=== PATIENT | female | born 1960 | race Hispanic/Latino ===

== ENCOUNTER 2019-03-27 15:02 | Emergency (ER) | payer OTHER ==
--- OUTSIDE RECORDS SUMMARY | 2019-03-27 15:04 | XMS REPORT ---
:1960 [facility] [address] [place] [address] [address] [place] [address] Care Team Providers Name Role Phone Unavailable Unavailable Unavailable Problems This patient has no known problems. Allergies, Adverse Reactions, Alerts This patient has no known allergies or adverse reactions. Medications This patient has no known medications.
[2019-03-27] MEDS ORDERED: HYDROCODONE/APAP 10/325 TAB ONE (17:40)
[2019-03-27 17:43] LABS: Urine Blood TRACE (NEG); Urine Glucose NEGATIVE (NEG); Urine Protein NEGATIVE (NEG); Urine Specific Gravity 1.025 (1.005-1.030)
--- NOTE | 2019-03-27 18:17 | RAD REPORT ---
EXAM DESCRIPTION: CT - Stone Protocol - 03/27/2019 6:01 pm CLINICAL HISTORY: Left flank pain, left lower abdominal pain, prior hysterectomy COMPARISON: May 2013 TECHNIQUE: Axial 5 mm thick images were obtained without oral or IV contrast. The [id number] span s the entirety of the system including uppermost abdomen and lung bases. All CT scans are performed using dose optimization technique as appropriate and may include automated exposure control or mA/KV adjustment according to patient size. FINDINGS: No hydronephrosis is present and no obstructing ureteral calculi. No suspicious renal mass es. Isodense masses and pyelonephritis are not excluded on a stone protocol CT scan. No urinary bladd er suspicious finding. No significant adrenal finding. Uterus is absent. Small left ovary is seen wit h no suspicious finding. Right ovary is not identified and may be surgically absent or atrophic. Liver shows fatty infiltration pattern. No focal liver lesion. Spleen and pancreas show no acute find ings. No gallbladder or biliary tree abnormality identified. Stomach and small bowel show no suspicious finding. Moderate stool volume in the right-side of the co juan. The appendix is normal. Sigmoid diverticulosis present without diverticulitis. No hernia, mass or bulky lymphadenopathy noted. No free air, free fluid or inflammatory stranding. No significant bony abnormality. IMPRESSION: No hydronephrosis, obstructing calculi or other acute finding. Isodense masses and pyelonephritis are not excluded on stone protocol technique. No acute GI finding. Patient has moderate sigmoid diverticulosis without diverticulitis. Active GI pr ocess is not seen.
[2019-03-27] MEDS ORDERED: DIAZEPAM 5 MG TABLET ONE (18:27)
[2019-03-27 19:36] LABS: Urine Bacteria <20 /HPF (<20); Urine Culture Reflex Order NOT NEEDED; Urine Mucus 1+ /HPF (NONE SEEN)
--- NOTE | 2019-03-27 19:39 | EDPHYS ---
Physician Documentation [facility] Name: Ashlee Robbins Age: 58 yrs Sex: Female : 1960 Arrival Date: 03/27/2019 Time: 15:05 Bed 20 Private MD: ED Physician Alex Oliveira HPI: 03/27 17:42 This 58 yrs old Female presents to ER via Ambulatory with complaints of Back jmm Pain, Pelvic Pain. 17:42 The patient presents with pain that is acute. Onset: The symptoms/episode jmm began/occurred gradually, 2 day(s) ago. The pain radiates to the pelvis. Associated signs and symptoms: Pertinent negatives: dysuria, fever, vomiting. This is a 58 year old female with no chronic medical conditions that presents to the ED with complaints of left lower back pain which radiates to her pelvis. Denies vomiting or diarrhea. Patient states the pain started after heavy lifting. . Historical: - Allergies: 15:23 Aspirin; aa5 - PMHx: 15:23 COLON PROBLEMS; aa5 - PSHx: 15:23 Hysterectomy; aa5 - Immunization history:: Flu vaccine is not up to date. - Social history:: Smoking status: Patient/guardian denies using tobacco. - Ebola Screening: : No symptoms or risks identified at this time. ROS: 17:42 Constitutional: Negative for fever, chills, and weight loss, Cardiovascular: Negative jmm for chest pain, palpitations, and edema, Respiratory: Negative for shortness of breath, cough, wheezing, and pleuritic chest pain. 17:42 Back: Positive for flank pain. 17:42 : Positive for pelvic pain. 17:42 All other systems are negative. Exam: 17:42 Constitutional: This is a well developed, well nourished patient who is awake, alert, jmm and in no acute distress. Head/Face: atraumatic. Eyes: EOMI, no conjunctival erythema appreciated ENT: Moist Mucus Membranes Neck: Trachea midline, Supple Chest/axilla: Normal chest wall appearance and motion. Cardiovascular: Regular rate and rhythm. No edema appreciated Respiratory: Normal respirations, no respiratory distress appreciated Abdomen/GI: Non distended, soft 17:42 Back: CVA tenderness, is absent, vertebral tenderness, is not appreciated, left buttock pain on palpation. 17:42 Musculoskeletal/extremity: ROM: intact in all extremities. 17:42 Skin: Appearance: Color: normal in color. 17:42 Neuro: Orientation: is normal, Mentation: is normal, Memory: is normal. 17:42 Psych: Behavior/mood is pleasant, cooperative. Vital Signs: 15:23 BP 146 / 83; Pulse 79; Resp 16 S; Temp 98.6(TE); Pulse Ox 96% on R/A; Weight 82.55 kg aa5 (R); Height 5 ft. 0 in. (152.40 cm) (R); Pain 10/10; 17:40 BP 178 / 98; Pulse 83; Resp 20; Pulse Ox 97% on R/A; Pain 10/10; em 19:20 BP 136 / 75; Pulse 66; Resp 16; Temp 98.3; Pulse Ox 99% ; Pain 5/10; rr5 19:50 BP 126 / 84; Pulse 62; Resp 17; Temp 98.2; Pulse Ox 99% ; Pain 3/10; rr5 15:23 Body Mass Index 35.54 (82.55 kg, 152.40 cm) aa5 MDM: 17:25 Patient medically screened. [facility] 19:29 Data reviewed: vital signs, nurses notes. Counseling: I had a detailed discussion with joleen the patient and/or guardian regarding: the historical points, exam findings, and any diagnostic results supporting the discharge/admit diagnosis, lab results, radiology results, the need for outpatient follow up, to return to the emergency department if symptoms worsen or persist or if there are any questions or concerns that arise at home. ED course: Patient is alert and non toxic in appearance. Most likely due to MS pain. Pain is relieved in the ED. Patient was otherwise given strict return precautions. Patient understood and agrees with the plan of care. . 03/27 17:30 Order name: Urine Dipstick--Ancillary (enter results) eb 03/27 17:44 Order name: Urine Dipstick-Ancillary; Complete Time: 18:20 EDMS 03/27 17:42 Order name: CT Stone Protocol [facility] 03/27 18:19 Order name: CT; Complete Time: 18:20 EDMS 03/27 18:27 Order name: Urine Microscopic Only em 03/27 19:36 Order name: Urine Microscopic Only; Complete Time: 19:40 EDMS Administered Medications: 17:43 Drug: [place] 10 mg-325 mg 1 tabs Route: PO; em 18:25 Follow up: Response: No adverse reaction; Pain is unchanged, physician notified em 18:27 Drug: Valium 5 mg Route: PO; em 19:53 Follow up: Response: No adverse reaction; Pain is decreased rr5 Disposition: 03/27/19 19:38 Discharged to Home. Impression: Muscle spasm, Urinary tract infection, site not specified. - Condition is Stable. - Discharge Instructions: Urinary Tract Infection, Adult. - Prescriptions for Cephalexin 500 mg Oral Capsule - take 1 capsule by ORAL route every 12 hours for 10 days; 20 capsule. Zanaflex 4 mg Oral Tablet - take 1 tablet by ORAL route every 8 hours As needed; 20 tablet. - Medication Reconciliation Form, Thank You Letter, Antibiotic Education, Prescription Opioid Use, Work release form form. - Follow up: Private Physician; When: 2 - 3 days; Reason: Recheck today's complaints, Continuance of care, Re-evaluation by your physician. Addendum: 03/30/2019 10:25 Co-signature as Attending Physician, Alex Oliveira MD I agree with the assessment and k dr plan of care. Signatures: Dispatcher [employer] EDIA Alex Oliveira MD MD kdr Mickail, Joel, PA PA [facility] Tony Santillan, HUMAN RELATIONS PROFESSOR HUMAN RELATIONS PROFESSOR Nell Beckham, RN RN aa5 Xander Guerrero RN RN rr5 Corrections: (The following items were deleted from the chart) 03/27 20:00 19:38 03/27/2019 19:38 Discharged to Home. Impression: Muscle spasm; Urinary tract rr5 infection, site not specified. Condition is Stable. Forms are Medication Reconciliation Form, Thank You Letter, Antibiotic Education, Prescription Opioid Use. Follow up: Private Physician; When: 2 - 3 days; Reason: Recheck today's complaints, Continuance of care, Re-evaluation by your physician. delroy
--- NOTE | 2019-03-27 19:39 | ER ---
Nurse's Notes [facility] Name: Ashlee Robbins Age: 58 yrs Sex: Female : 1960 Arrival Date: 03/27/2019 Time: 15:05 Bed 20 Private MD: Diagnosis: Muscle spasm;Urinary tract infection, site not specified Presentation: 03/27 15:21 Presenting complaint: Patient states: lower abd pain and low back pain that began aa5 . Pt reports nausea, denies vomiting. Reports diarrhea that has resolved. Transition of care: patient was not received from another setting of care. Onset of symptoms was February 2019. Risk Assessment: Do you want to hurt yourself or someone else? Patient reports no desire to harm self or others. Initial Sepsis Screen: Does the patient meet any 2 criteria? No. Patient's initial sepsis screen is negative. Does the patient have a suspected source of infection? No. Patient's initial sepsis screen is negative. Care prior to arrival: None. 15:21 Acuity: PATRICA 3 aa5 15:21 Method Of Arrival: Ambulatory aa5 Historical: - Allergies: 15:23 Aspirin; aa5 - PMHx: 15:23 COLON PROBLEMS; aa5 - PSHx: 15:23 Hysterectomy; aa5 - Immunization history:: Flu vaccine is not up to date. - Social history:: Smoking status: Patient/guardian denies using tobacco. - Ebola Screening: : No symptoms or risks identified at this time. Screenin:40 Abuse screen: Denies threats or abuse. Nutritional screening: No deficits noted. em Tuberculosis screening: No symptoms or risk factors identified. Fall Risk None identified. Assessment: 17:40 General: Appears in no apparent distress. uncomfortable, Behavior is calm, cooperative, em Denies fever. Pain: Complains of pain in left gluteus delmar Pain currently is 10 out of 10 on a pain scale. Pain began 2-3 days ago. Neuro: Level of Consciousness is awake, alert, obeys commands. Cardiovascular: Capillary refill < 3 seconds Patient's skin is warm and dry. Respiratory: Airway is patent Respiratory effort is even, unlabored, Respiratory pattern is regular, symmetrical. GI: Patient currently denies nausea, vomiting. : Denies burning with urination. Derm: Skin is intact, is healthy with good turgor, Skin is pink, warm \T\ dry. Musculoskeletal: Capillary refill < 3 seconds, Range of motion: intact in all extremities. 17:50 Reassessment: I agree with previous assessment. hb 18:20 Reassessment: Patient appears in no apparent distress at this time. Patient and/or em family updated on plan of care and expected duration. Pain level reassessed. Patient is alert, oriented x 3, equal unlabored respirations, skin warm/dry/pink. Patient states symptoms have not improved. 19:19 General: Appears in no apparent distress. comfortable, Behavior is calm, cooperative, rr5 appropriate for age. Pain: Complains of pain in left lower quadrant Pain radiates to groin Pain currently is 5 out of 10 on a pain scale. Quality of pain is described as aching, Pain began gradually, Is intermittent. Neuro: Level of Consciousness is awake, alert, obeys commands, Oriented to person, place, time, situation. Cardiovascular: Capillary refill < 3 seconds Patient's skin is warm and dry. Respiratory: Airway is patent Respiratory effort is even, unlabored, Respiratory pattern is regular, symmetrical. GI: Abdomen is round Reports lower abdominal pain, nausea, Patient currently denies vomiting. EENT: No signs and/or symptoms were reported regarding the EENT system. Derm: Skin is intact, Skin temperature is warm. Musculoskeletal: Circulation, motion, and sensation intact. Capillary refill < 3 seconds. 19:51 Reassessment: Patient appears in no apparent distress at this time. Patient is alert, rr5 oriented x 3, equal unlabored respirations, skin warm/dry/pink. discharge instruction given and explained without complaints made, verbalized understanding. Patient states feeling better. Patient states symptoms have improved. Vital Signs: 15:23 BP 146 / 83; Pulse 79; Resp 16 S; Temp 98.6(TE); Pulse Ox 96% on R/A; Weight 82.55 kg aa5 (R); Height 5 ft. 0 in. (152.40 cm) (R); Pain 10/10; 17:40 BP 178 / 98; Pulse 83; Resp 20; Pulse Ox 97% on R/A; Pain 10/10; em 19:20 BP 136 / 75; Pulse 66; Resp 16; Temp 98.3; Pulse Ox 99% ; Pain 5/10; rr5 19:50 BP 126 / 84; Pulse 62; Resp 17; Temp 98.2; Pulse Ox 99% ; Pain 3/10; rr5 15:23 Body Mass Index 35.54 (82.55 kg, 152.40 cm) aa5 ED Course: 15:05 Patient arrived in ED. cl3 15:21 Arm band placed on. aa5 15:22 Triage completed. aa5 17:09 Robert Martinez [facility] 17:09 Alex Oliveira MD is Attending Physician. [facility] 17:23 Urine collected: clean catch specimen, clear, adrianne colored. jb1 17:33 Tony Santillan LVN is Primary Nurse. em 17:40 Patient has correct armband on for positive identification. Placed in gown. Bed in low em position. Call light in reach. Side rails up X2. Pulse ox on. NIBP on. 20:00 No provider procedures requiring assistance completed. Patient did not have IV access rr5 during this emergency room visit. Administered Medications: 17:43 Drug: [place] 10 mg-325 mg 1 tabs Route: PO; em 18:25 Follow up: Response: No adverse reaction; Pain is unchanged, physician notified em 18:27 Drug: Valium 5 mg Route: PO; em 19:53 Follow up: Response: No adverse reaction; Pain is decreased rr5 Outcome: 19:38 Discharge ordered by . [facility] 19:58 Discharged to home ambulatory, with family. rr5 19:58 Condition: stable 19:58 Discharge instructions given to patient, Instructed on discharge instructions, follow up and referral plans. medication usage, Demonstrated understanding of instructions, follow-up care, medications, Prescriptions given X 2. 20:00 Patient left the ED. rr5 Signatures: José Zamarripa jb1 Robert Martinez PA PA [facility] Tony Santillan LVN [employer] em Nell Ocasio RN RN aa5 Justine Galvez, BASILIO RICHMOND Xander Guerrero RN RN rr5 Zuhair Goodson cl3
[2019-03-28 01:41] VITALS: O2SAT 99
[2019-03-28 03:50] VITALS: BP 126/84; TEMP 98.2
== END 2019-03-27 20:00 | disposition home or self-care (01) ==
LOC: ER 15:02
DX: N39.0 Urinary tract infection, site not specified (principal); M62.838 Other muscle spasm; Z88.6 Allergy status to analgesic agent
CPT/HCPCS: 74176; 76377; 81003; 81015; 99284